=== PATIENT | female | born 1995 | race Caucasian/White ===

== ENCOUNTER → 2020-11-22 | Outpatient (CLI) | payer OTHER ==
[~2020-11-22] MED LIST: Antivert25 MG PO; CEPH250A PO; CIPRO500 MG PO; CODACEE120 PO; IBUP600 PO; Naprosyn500 MG PO; ONDA4ODT MM; RXCODACESY PO; SULTRIEL PO
== END | disposition home or self-care (01) ==
LOC: LAB 15:00 → LAB SHORT 15:00
DX: O28.8 Other abnormal findings on antenatal screening of mother (principal); R82.90 Unspecified abnormal findings in urine; Z3A.36 36 weeks gestation of pregnancy
CPT/HCPCS: 87081; 87086; 87150

== ENCOUNTER 2020-12-08 19:58 | Inpatient (IN) | payer OTHER ==
[~2020-12-08] VITALS: Ht 157.5 cm; Wt 64.9 kg
[2020-12-08] MEDS ORDERED: PRENATAL TABLE1 EAC2 PO (21:21)
[2020-12-08 21:28] LABS: BASOPHILS ABSOLUTE AUTO 0.04 K/mm3 (0.00-0.23); BASOPHILS PERCENT AUTO 0 % (0-2); EOSINOPHILS ABSOLUTE AUTO 0.03 K/mm3 (0.00-0.68); EOSINOPHILS PERCENT AUTO 0 % (0-6); Hemoglobin 9.9 g/dL (11.5-16.0); IMMATURE GRAN ABSOLUTE AUTO 0.13 K/mm3 (0.00-0.10); IMMATURE GRAN PERCENT AUTO 1 % (0-1); LYMPHOCYTES ABSOLUTE AUTO 1.75 K/mm3 (0.84-5.20); LYMPHOCYTES PERCENT AUTO 12 % (21-46); MONOCYTES ABSOLUTE AUTO 1.52 K/mm3 (0.16-1.47); MONOCYTES PERCENT AUTO 10 % (4-13); Mean Corpuscular HGB 25.4 pg (26.0-34.0); Mean Corpuscular HGB Conc 31.9 g/dL (31.5-36.5); Mean Corpuscular Volume 80 fL (80-100); Mean Platelet Volume 12.3 fL (9.1-12.4); NEUTROPHILS ABSOLUTE AUTO 11.52 K/mm3 (1.96-9.15); NEUTROPHILS PERCENT AUTO 77 % (41-73); NRBC ABSOLUTE 0.02 K/mm3 (0.00-0.02); NRBC Auto 0.1 /100 WBC (0.0-0.2); Platelet Count 261 K/mm3 (150-400); RDW Coefficient Variation 16.4 % (11.7-14.2); RDW Standard Deviation 47.1 fL (35.1-46.3); Red Blood Cell Count 3.89 M/mm3 (3.80-5.20); White Blood Cell Count 14.99 K/mm3 (4.00-11.30)
[2020-12-08 22:56] LABS: SARS-Cov-2 (COVID-19) PCR, MMC NEGATIVE (NEGATIVE)
[2020-12-10 06:06] LABS: BASOPHILS ABSOLUTE AUTO 0.04 K/mm3 (0.00-0.23); BASOPHILS PERCENT AUTO 0 % (0-2); EOSINOPHILS ABSOLUTE AUTO 0.05 K/mm3 (0.00-0.68); EOSINOPHILS PERCENT AUTO 0 % (0-6); Hematocrit 26.1 % (33.0-51.0); Hemoglobin 8.3 g/dL (11.5-16.0); IMMATURE GRAN ABSOLUTE AUTO 0.18 K/mm3 (0.00-0.10); IMMATURE GRAN PERCENT AUTO 1 % (0-1); LYMPHOCYTES PERCENT AUTO 10 % (21-46); MONOCYTES ABSOLUTE AUTO 1.66 K/mm3 (0.16-1.47); MONOCYTES PERCENT AUTO 8 % (4-13); Mean Corpuscular HGB 25.5 pg (26.0-34.0); Mean Corpuscular HGB Conc 31.8 g/dL (31.5-36.5); Mean Corpuscular Volume 80 fL (80-100); Mean Platelet Volume 12.7 fL (9.1-12.4); NEUTROPHILS ABSOLUTE AUTO 15.83 K/mm3 (1.96-9.15); NEUTROPHILS PERCENT AUTO 81 % (41-73); Platelet Count 198 K/mm3 (150-400); RDW Coefficient Variation 16.5 % (11.7-14.2); RDW Standard Deviation 48.5 fL (35.1-46.3); Red Blood Cell Count 3.26 M/mm3 (3.80-5.20); White Blood Cell Count 19.66 K/mm3 (4.00-11.30)
--- NOTE | 2020-12-10 11:18 | NUR ---
REPORT OFF TO JAME BOYD WHO IS ASSUMING CARE OF PATIENT AT 1100
--- NOTE | 2020-12-10 16:33 | NUR ---
DISCHARGE PT GIVEN DISCHARGE INSTRUCTIONS DENIES ANY FURTHER QUESTIONS OR CONCERNS. WILL RETURN FOR PPFU APPOINTMENT. BANDS MATCHED, HUGS REMOVED. VITALS ALL WNL
== END 2020-12-10 16:35 | disposition home or self-care (01) | DRG 807 ==
LOC: OBS 19:58 → BC 20:05 → OBS 20:51 → BC 20:52
PROVIDERS: ADMIT Obstetrics & Gynecology
PROC: 10E0XZZ Delivery of Products of Conception, External Approach (ICD-10-PCS; principal; 2020-12-09)
PROC: 3E0R3BZ Introduction of Anesthetic Agent into Spinal Canal, Percutaneous Approach (ICD-10-PCS; 2020-12-09)
PROC: 00HU33Z Insertion of Infusion Device into Spinal Canal, Percutaneous Approach (ICD-10-PCS; 2020-12-09)
PROC: 0KQM0ZZ Repair Perineum Muscle, Open Approach (ICD-10-PCS; 2020-12-09)
DX: O42.02 Full-term premature rupture of membranes, onset of labor within 24 hours of rupture (principal); Z37.0 Single live birth; Z20.822 Contact with and (suspected) exposure to COVID-19; O77.0 Labor and delivery complicated by meconium in amniotic fluid; O70.1 Second degree perineal laceration during delivery; Z3A.39 39 weeks gestation of pregnancy
CPT/HCPCS: 36415; 51702; 59025; 85025; 86850; 86900; 86901; 99214; A9270; J1885; J2001; J2210; J2590; J3010; J7120; U0004

== ENCOUNTER 2020-12-19 19:45 | Observation (INO) | payer OTHER ==
[~2020-12-19] VITALS: Ht 157.5 cm; Wt 58.2 kg
[~2020-12-19 19:45] MED LIST changes: +PRENATAL TABLE1 EAC2 PO
[2020-12-19 20:50] LABS: BASOPHILS ABSOLUTE AUTO 0.09 K/mm3 (0.00-0.23); BASOPHILS PERCENT AUTO 1 % (0-2); EOSINOPHILS ABSOLUTE AUTO 0.14 K/mm3 (0.00-0.68); EOSINOPHILS PERCENT AUTO 2 % (0-6); Hematocrit 31.7 % (33.0-51.0); Hemoglobin 9.7 g/dL (11.5-16.0); IMMATURE GRAN ABSOLUTE AUTO 0.13 K/mm3 (0.00-0.10); IMMATURE GRAN PERCENT AUTO 1 % (0-1); LYMPHOCYTES ABSOLUTE AUTO 2.09 K/mm3 (0.84-5.20); LYMPHOCYTES PERCENT AUTO 22 % (21-46); MONOCYTES ABSOLUTE AUTO 0.55 K/mm3 (0.16-1.47); MONOCYTES PERCENT AUTO 6 % (4-13); Mean Corpuscular HGB 25.3 pg (26.0-34.0); Mean Corpuscular HGB Conc 30.6 g/dL (31.5-36.5); Mean Corpuscular Volume 83 fL (80-100); Mean Platelet Volume 11.8 fL (9.1-12.4); NEUTROPHILS PERCENT AUTO 68 % (41-73); NRBC ABSOLUTE 0.02 K/mm3 (0.00-0.02); NRBC Auto 0.2 /100 WBC (0.0-0.2); Platelet Count 384 K/mm3 (150-400); RDW Coefficient Variation 15.9 % (11.7-14.2); RDW Standard Deviation 47.4 fL (35.1-46.3); Red Blood Cell Count 3.84 M/mm3 (3.80-5.20)
[2020-12-19 21:01] LABS: Source, Urine Clean Catch
[2020-12-19 21:05] LABS: Alanine Aminotransfer (ALT/SGP 17 U/L (12-78); Albumin, Blood 2.4 g/dL (3.4-5.0); Albumin/Globulin Ratio 0.6 (0.8-1.8); Alk Phos 141 U/L (50-136); Anion Gap 5 mmol/L (6-16); Aspartate Aminotrans (AST/SGOT 13 U/L (12-37); Bilirubin, Total 0.3 mg/dL (0.1-1.0); Blood Urea Nitrogen 11 mg/dL (8-24); Bun/Creatinine Ratio 13.9 (12.0-20.0); CO2, Blood 26 mmol/L (21-32); Calcium, Blood 8.4 mg/dL (8.5-10.1); Chloride, Blood 109 mmol/L (98-108); Creatinine, Blood 0.79 mg/dL (0.40-1.00); Globulin, Blood 3.7 g/dL (2.2-4.0); Glomerular Filtration Rate >60 (60-); Glucose, Blood 82 mg/dL (70-99); Potassium, Blood 3.6 mmol/L (3.5-5.5); Sodium, Blood 140 mmol/L (136-145); Total Protein, Blood 6.1 g/dL (6.4-8.2)
[2020-12-19 21:13] LABS: Appearance, Urine Cloudy (Clear); Bilirubin, Urine Neg (Neg); Blood, Urine 2+ (Neg); Color, Urine Amber (P-Yellow); Glucose Qualitative, Urine Neg (Neg); Ketones, Urine 1+ (Neg); Leukocyte Esterase, Urine 3+ (Neg); Nitrite, Urine Neg (Neg); Protein, Urine 2+ (Neg); Urobilinogen, Urine 3+ (Normal); pH, Urine 6.5 (5.0-8.0)
[2020-12-19 21:19] LABS: White Blood Cells, Urine TNTC /hpf (0-5)
[2020-12-19 21:20] LABS: Bacteria Many /hpf; Mucus Mod (0-Heavy); Squamous Epithelial Cells Mod /hpf (Few)
--- NOTE | 2020-12-20 00:23 | NUR ---
PT ARRIVED TO ROOM FROM ER. PT A/O, DENIES DIZZINESS. PT C/O THROBBING HEADACHE 03/15. PT 10 DAYS POST . REP VAGINAL DISCHARGE CHANGED SUNDAY (2 DAYS AGO) TO DARKER AND FOUL SMELLING. PT REP HAVING TO CHANGE PAD APPX Q3 HRS. PT REP HEADACHE LOWER ABD PAIN STARTED LAST NIGHT. PT DENIES FEVERS/N/V OR PAIN W/VOIDS. PT BP REMAINS ELEVATED, PT DENIES ANY HX OF HTN. DR OSBORNE UPDATED ON PT STATUS, ORDERS REVIEWED. PLAN TO TX PER ORDERS AND NOTIFY MD FOR CONCERNS.
[2020-12-20 04:23] LABS: BASOPHILS ABSOLUTE AUTO 0.07 K/mm3 (0.00-0.23); BASOPHILS PERCENT AUTO 1 % (0-2); EOSINOPHILS ABSOLUTE AUTO 0.13 K/mm3 (0.00-0.68); EOSINOPHILS PERCENT AUTO 1 % (0-6); Hematocrit 26.7 % (33.0-51.0); Hemoglobin 8.2 g/dL (11.5-16.0); IMMATURE GRAN ABSOLUTE AUTO 0.09 K/mm3 (0.00-0.10); IMMATURE GRAN PERCENT AUTO 1 % (0-1); LYMPHOCYTES ABSOLUTE AUTO 2.13 K/mm3 (0.84-5.20); LYMPHOCYTES PERCENT AUTO 24 % (21-46); MONOCYTES ABSOLUTE AUTO 0.63 K/mm3 (0.16-1.47); MONOCYTES PERCENT AUTO 7 % (4-13); Mean Corpuscular HGB 25.1 pg (26.0-34.0); Mean Corpuscular HGB Conc 30.7 g/dL (31.5-36.5); Mean Corpuscular Volume 82 fL (80-100); Mean Platelet Volume 11.7 fL (9.1-12.4); NEUTROPHILS ABSOLUTE AUTO 5.97 K/mm3 (1.96-9.15); NEUTROPHILS PERCENT AUTO 66 % (41-73); Platelet Count 294 K/mm3 (150-400); RDW Coefficient Variation 15.9 % (11.7-14.2); RDW Standard Deviation 47.4 fL (35.1-46.3); Red Blood Cell Count 3.27 M/mm3 (3.80-5.20); White Blood Cell Count 9.02 K/mm3 (4.00-11.30)
--- NOTE | 2020-12-20 05:41 | NUR ---
PT BP MUCH IMPROVED THIS AM. HEADACHE RESOLVED W/MOTRIN AND 1 PERCOCET. PT REP ABD PAIN CYNTHIA, NO N/O N/V. PT REPORTS HAVING BROWN DISCHARGE W/FOUL ODOR. ANGI PADS PROVIDED. PT HAS NOT HAD TO CHANGE PAD YET PAD SINCE ARRIVING TO FLOOR. IVF AND ABX CONT PER ORDERS. PT NPO POST MIDNIGHT.
[2020-12-20] MEDS ORDERED: Percocet 5-3251 EACH PO (14:21)
[2020-12-20] MEDS ORDERED: AMOCLA500 PO (14:22)
--- NOTE | 2020-12-20 14:32 | NUR ---
DISCHARGE DISCUSSED EDUCATION 7 SCRIPTS GIVEN. PT GETTING DRESSED & AWAITNIG SPOUSE FOR RIDE HOME.
--- NOTE | 2020-12-20 15:10 | NUR ---
DISCHARGE DENIED W/C OUT. AMBULATED OUT W/ SPOUSE.
== END 2020-12-20 15:41 | disposition home or self-care (01) ==
LOC: ER 19:45 → SURS 19:46
PROVIDERS: Physician Assistant; ADMIT Obstetrics & Gynecology
DX: O86.12 Endometritis following delivery (principal)
CPT/HCPCS: 36415; 76857; 80053; 81001; 84702; 85025; 87086; 96365; 96366; 96367; 96375; 99285-25; A9270; G0378; J0295; J1580; J2270; J2405; J7030; J7120